=== PATIENT | female | born 1960 | race Caucasian/White ===

== ENCOUNTER 2017-10-12 07:57 | Emergency (ER) | payer OTHER, MEDICAID ==
[~2017-10-12 07:57] MED LIST: AMIO200T PO; ASPI81TA82 PO; CARV25TA PO; CEPH500C3 PO; DIGO0.253 PO; FURO1TAB93 PO; LORTA10 PO; LOSA25TA31 PO; RAMI5CAP36 PO; ROSU10 PO; SPIR25TA PO
[2017-10-12 07:59] VITALS: BP 173/96; PULSE 80; RESP 16; TEMP 97.7; O2SAT 97
[2017-10-12 08:10] VITALS: BP 147/88; PULSE 79; RESP 18; O2SAT 99
--- NOTE | 2017-10-12 09:09 | PD ---
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 She reports hx CHF with pacing device placed by Dr Almaguer. Last night the pacing device beeped. Repeat again this morning. She has been educated that such arms well be an indication for device replacement. She has no complaint otherwise. She reports an appointment scheduled with Dr. Almaguer in 4 days time. She reports no change in her baseline state of health lately. Compliance with all medications reported. No chest pain shortness of breath. PFSH Past Medical History Arthritis: No Asthma: No Autoimmune Disease: No Blood Disorders: No Anxiety: Yes Depression: Yes Heart Rhythm Problems: No Cancer: No Cardiovascular Problems: Yes High Cholesterol: Yes Chemotherapy: No Chest Pain: No Congestive Heart Failure: Yes COPD: No Cerebrovascular Accident: No Coronary Artery Disease: Yes Diabetes: No Diminished Hearing: No Endocrine: No Gastrointestinal Disorders: No GERD: No Glaucoma: No Genitourinary: No Headaches: Yes Hepatitis: No Hiatal Hernia: No Hypertension: Yes Immune Disorder: No Kidney Stones: No Musculoskeletal: No Neurologic: No Psychiatric: No Reproductive: Yes (TUBAL LIGATION) Respiratory: No Integumentary: No Migraines: No Myocardial Infarction: No Radiation Therapy: No Renal Failure: No Seizures: No Sickle Cell Disease: No Sleep Apnea: No Thyroid Disease: Yes Ulcer: No ?: Not : 3 Para: 3 Tubal Ligation: Yes Past Surgical History Abdominal Surgery: No AICD: Yes Appendectomy: No Arteriovenous Shunt: No Cardiac Surgery: No Cholecystectomy: No Ear Surgery: No Endocrine Surgery: No Eye Surgery: No Genitourinary Surgery: No Gynecologic Surgery: No Insulin Pump: No Joint Replacement: No Neurologic Surgery: No Oral Surgery: No Pacemaker: Yes Thoracic Surgery: No Other Surgery: No Social History Alcohol Use: No Tobacco Use: No Substance Use: No Allergies-Medications (Allergen,Severity, Reaction): Coded Allergies: No Known Allergies (Verified Adverse Reaction, Unknown, 10/12/17) Reported Meds & Prescriptions Reported Meds & Active Scripts Active Reported Lortab 10/325 Tab (Hydrocodone-Acetaminophen) 10 Mg/325 Mg Tab 1 Tab PO Q4H PRN Keflex (Cephalexin Monohydrate) 500 Mg Cap 500 Mg PO TID Cozaar (Losartan Potassium) 25 Mg Tab 25 Mg PO DAILY Crestor (Rosuvastatin Calcium) 10 Mg Tab 10 Mg PO DAILY Aspir-81 (Aspirin) 81 Mg Tab 81 Mg PO DAILY Carvedilol 25 Mg Tab 25 Mg PO BID Spironolactone 25 Mg Tab 25 Mg PO DAILY Ramipril 5 Mg Cap 5 Mg PO DAILY Digitek (Digoxin) 0.25 Mg Tab 0.25 Mg PO DAILY Furosemide 40 Mg Tab 40 Mg PO DAILY Amiodarone Hcl (Amiodarone HCl) 200 Mg Tab 100 Mg PO DAILY Review of Systems Except as stated in HPI: all other systems reviewed are Neg General / Constitutional: No: Fever Cardiovascular: No: Chest Pain or Discomfort Respiratory: No: Shortness of Breath Physical Exam Narrative GENERAL: 57-year-old female no acute distress speaking in sentences well- nourished well-developed SKIN: Warm and dry. HEAD: Atraumatic. Normocephalic. EYES: Pupils equal and round. No scleral icterus. No injection or drainage. ENT: No nasal bleeding or discharge. Mucous membranes pink and moist. NECK: Trachea midline. No JVD. CARDIOVASCULAR: Regular rate and rhythm. RESPIRATORY: No accessory muscle use. Clear to auscultation. Breath sounds equal bilaterally. GASTROINTESTINAL: Abdomen soft, non-tender, nondistended. Hepatic and splenic margins not palpable. MUSCULOSKELETAL: Extremities without clubbing, cyanosis, or edema. No obvious deformities. NEUROLOGICAL: Awake and alert. No obvious cranial nerve deficits. Motor grossly within normal limits. Five out of 5 muscle strength in the arms and legs. Normal speech. PSYCHIATRIC: Appropriate mood and affect; insight and judgment normal. Data Data Last Documented VS Vital Signs Date Time Temp Pulse Resp B/P (MAP) Pulse Ox O2 Delivery O2 Flow Rate FiO2 10/12/17 08:10 79 18 147/88 (107) 99 10/12/17 07:59 97.7 VS reviewed [facility] Medical Decision Making Medical Screen Exam Complete: Yes Emergency Medical Condition: Yes Medical Record Reviewed: Yes Differential Diagnosis Pacer device expiration, arrhythmia, malfunction Narrative Course Pacemaker interrogation reveals the device has reached the final 3 months of its functionality based on battery power. The patient has an appointment with Dr. Almaguer in 4 days. Pt educated about daily at 8AM device beeping. Diagnosis Primary Impression: Pacemaker at end of battery life Referrals: Louis Almaguer MD 2 days Disposition: 01 DISCHARGE HOME Condition: Stable Hans Lepe MD Oct 12, 2017 09:09
--- NOTE | 2017-10-13 18:13 | EKG ---
Date Performed: 10/12/2017 Time Performed: 08:21:39 PTAGE: 57 years EKG: ELECTRONIC ATRIAL PACEMAKER ELECTRONIC VENTRICULAR PACEMAKER Compared to previous tracing r melanie is now AV paced ABNORMAL RHYTHM ECG PREVIOUS TRACING : 08/05/2013 16.59 DOCTOR: Dong Martínez Interpretating Date/Time 10/13/2017 18:12:03
== END 2017-10-12 10:40 | disposition home or self-care (01) ==
LOC: NEPC 07:57
DX: T82.191A Other mechanical complication of cardiac pulse generator (battery), initial encounter (principal); I11.0 Hypertensive heart disease with heart failure; I50.9 Heart failure, unspecified; F41.9 Anxiety disorder, unspecified; F32.9 Major depressive disorder, single episode, unspecified; E78.00 Pure hypercholesterolemia, unspecified; I25.10 Atherosclerotic heart disease of native coronary artery without angina pectoris; Z79.82 Long term (current) use of aspirin; Z79.899 Other long term (current) drug therapy
CPT/HCPCS: 93005; 99284

== ENCOUNTER 2017-10-30 06:49 | Day surgery (SDC) | payer OTHER ==
[~2017-10-30] VITALS: Ht 172.7 cm; Wt 121.6 kg
[2017-10-30] MEDS ORDERED: NS 1000 ML IV SCH (07:00)
[2017-10-30] MEDS ORDERED: POVIDONE IODINE 5% (ANTISEPSIS KIT) 4 APPLICATIONS EACH NARE PRN (07:15)
[2017-10-30] MEDS ORDERED: LORazepam 1 MG TAB SL SCH (07:15)
[2017-10-30] MEDS ORDERED: POVIDONE IODINE 5% (ANTISEPSIS KIT) 4 APPLICATIONS EACH NARE SCH (07:15)
[2017-10-30] MEDS ORDERED: ceFAZolin 2 GM PREMIX 50 ML IV SCH (07:15)
[2017-10-30] MEDS ORDERED: VANCOMYCIN 1000 MG/NS 250 ML IV SCH ×2 (07:15)
[2017-10-30] MEDS ORDERED: LACTATED RINGER'S 1000 ML IV PRN (07:15)
[2017-10-30] MEDS ORDERED: SODIUM CHLORID 0.9% 500 ML IV PRN (07:15)
[2017-10-30] MEDS ORDERED: METOPROLOL TARTRATE 25 MG TAB PO PRN (07:15)
[2017-10-30] MEDS ORDERED: CHLORHEXIDINE GLUCONATE 2 % 1 PACK (2 CLOTHS) TOPICAL SCH (07:15)
[2017-10-30] MEDS ORDERED: CHLORHEXIDINE GLUCONATE 2 % 1 PACK (2 CLOTHS) TOPICAL PRN (07:15)
[2017-10-30] MEDS ORDERED: MUPIROCIN 2% OINT 1 APPLIC/GM SYR NASAL SCH (07:15)
[2017-10-30 07:29] VITALS: BP 143/92; PULSE 80; RESP 19; TEMP 98.3; O2SAT 97
[2017-10-30 07:30] LABS: AUTOMATED NEUTROPHIL # 6.1 TH/MM3 (1.8-7.7); BASOPHIL # 0.1 TH/MM3 (0-0.2); BASOPHIL % 0.7 % (0.0-2.0); EOSINOPHIL # 0.2 TH/MM3 (0-0.4); EOSINOPHIL % 2.6 % (0.0-4.0); HEMATOCRIT 40.2 % (35.0-46.0); HEMOGLOBIN 13.1 GM/DL (11.6-15.3); LYMPH % 16.3 % (9.0-44.0); LYMPHOCYTE # 1.3 TH/MM3 (1.0-4.8); MEAN CELL VOLUME 85.9 FL (80.0-100.0); MEAN CORPUSCULAR HEMOGLOBIN 27.9 PG (27.0-34.0); MEAN CORPUSCULAR HGB CONC 32.5 % (32.0-36.0); MEAN PLATELET VOLUME 8.5 FL (7.0-11.0); MONO % 5.2 % (0.0-8.0); MONOCYTE # 0.4 TH/MM3 (0-0.9); NEUT % 75.2 % (16.0-70.0); PLATELET COUNT 235 TH/MM3 (150-450); RED BLOOD COUNT 4.68 MIL/MM3 (4.00-5.30); RED CELL DISTRIBUTION WIDTH 14.7 % (11.6-17.2); WHITE BLOOD COUNT 8.1 TH/MM3 (4.0-11.0)
[2017-10-30 07:36] LABS: PROTHROMBIN TIME - PATIENT 10.5 SEC (9.8-11.6)
[2017-10-30 07:42] LABS: BICARBONATE 31.6 MEQ/L (21.0-32.0); CALCIUM 8.8 MG/DL (8.5-10.1); CREATININE 0.82 MG/DL (0.50-1.00)
[2017-10-30] MEDS ORDERED: LEVO100T5 PO (07:42)
[2017-10-30] MEDS ORDERED: ASPI81CH6 CHEW (07:42)
[2017-10-30] MEDS ORDERED: AMIO200T PO (07:42)
[2017-10-30] MEDS ORDERED: ROSU10 PO (07:42)
[2017-10-30] MEDS ORDERED: DIGO0.25 PO (07:42)
[2017-10-30] MEDS ORDERED: CORE25TA PO (07:42)
[2017-10-30] MEDS ORDERED: RAMI5CAP PO (07:42)
[2017-10-30] MEDS ORDERED: SPIR25TA PO (07:42)
[2017-10-30] MEDS ORDERED: LOSA25TA PO (07:42)
[2017-10-30] MEDS ORDERED: RANI150T PO (07:42)
[2017-10-30] MEDS ORDERED: FURO40TA PO (07:42)
[2017-10-30] MEDS ORDERED: PROPOFOL 200 MG/20 ML AMP ONE (11:04)
[2017-10-30] MEDS ORDERED: MIDAZOLAM HCL 2 MG/2 ML VIAL ONE (11:04)
[2017-10-30] MEDS ORDERED: KETAMINE HCL 500 MG/5 ML VIAL ONE (11:05)
[2017-10-30] MEDS ORDERED: VANCOMYCIN 500 MG VIAL ONE (11:06)
[2017-10-30] MEDS ORDERED: LIDOCAINE HCL 2% 50 ML VIAL ONE (11:06)
[2017-10-30] MEDS ORDERED: ONDANSETRON HCL 4 MG/2 ML VIAL IV PUSH PRN (12:00)
[2017-10-30] MEDS ORDERED: DEXAMETHASONE SOD PHOS 4 MG/ML VIAL IV ONE (12:00)
[2017-10-30] MEDS ORDERED: SODIUM CHLORIDE 0.9% FLUSH 10 ML FLUSH IV FLUSH PRN (12:00)
--- NOTE | 2017-10-30 12:04 | CATHPROC ---
[facility] HIS Report Study Information Study Number Admission Scheduled Start Study Start [id number] Oct 30 2017 6:49AM 10/30/2017 Oct 30 2017 8:17AM [place] [facility] Cardiac Pacer/ICD Admit Source Facility Department Other [facility] - [facility] Physician and Clinical Staff Initial Louis Thibodeaux Antenna Rigger Grant Watkins RCIS(BS) Other Anesthesia, AIR SEALING TECHNICIAN Recorder Vandana Luis,BSRN Recorder Florence Cox,FRANK Scrub Maggie Simmons RT(R) Equipment Time Sports Teacher Description Size Mfg Part Number Used/Scraped DERMABOND, ADHESIVE SKIN [id number] 08:24 CORDIS/PACER * Used GLUE MINI *[id number] 08:24 MEDLINE INDUSTRIES SUTURE, STRIP PLUS 1/2" * Used *[id number] 08:24 MEDLINE PACER [place], LIMB * 2530 *[id number] Used [id number] 08:24 MEDLINE PACER PACK, PACER CUSTOM * Used *[id number] 11:23 Needle Sponge Count 2 2 Used 11:23 Needle Sponge Count 2 22 Used 11:23 Needle Sponge Count 3 33 Used 11:23 Needle Sponge Count 30 1 Used SUTURE, 0 ETHIBOND [CT1] ([id number]), 8pk SUTURE, 2-0 VICRYL [CT1] ([id number]) SUTURE, 2-0 VICRYL [CT1] ([id number]) [id number] 08:24 [place] [facility],WARM AIR CCL * Used *[id number] [facility] PAD, ELECTROSURGICAL 08:24 * [id number] *[id number] Used SURGICAL GROUNDING ORANGE 11:47 VITATRON MEDTRONIC DEFIBRILLATOR, VIVA XT PRODUCTION ASSISTANT-D DDE-DDDR [id number] Used [id number] 08:24 BeepL MEDICAL LV. / * Used *[id number] Equipment Model, Serial, Lot Number and Expiration Data Description Model Number Serial Number Lot Number Expiration Date DEFIBRILLATOR, VIVA XT PRODUCTION ASSISTANT-D [id number] 02-14-2019 History: Current Medications Medication Dosage/Unit Route Frequency Last Date/Time Taken Statins (any) Beta Tera ASA History: Allergies Allergy Reaction No Known Allergies History: Risk Factors Hypertension Dyslipidemia Previous Heart Failure Yes Yes Yes Labs Hgb (g/dl) Hct (%) RBC (MIL/MM3) WBC (l/cumm) Platelets (thousands) 11.60-17.00 35.00-51.00 4.00-5.90 4.00-11.00 150.00-450.00 13.1 40.2 4.6 8.1 235 Glucose (mg/dl) BUN (mg/dl) Creatinine (mg/dl) BUN:Creatinine (1:x) 74.00-106.00 7.00-18.00 0.50-1.30 10.00-20.00 98 12 0.8 15 Na (meq/l) K (meq/l) Cl (meq/l) CO2 (mmol/L) Ca (mg/dl) 136.00-145.00 3.50-5.10 98.00-107.00 21.00-32.00 8.50-10.10 139 3.8 101 31.6 8.8 INR (PTT:PT) 0.90-1.10 1 Medication Medication Total Dose (Bolus/Oral) Medication Total Dosage/Unit 2% XYLOCAINE 50 mL Medications (Bolus/Oral) Medication Time Given Dosage/Unit Administered By Reason 10/30/2017 11:35:58 2% XYLOCAINE 50 mL Louis Almaguer AM 50 mL 2% XYLOCAINE given in lab by Louis Almaguer in Left shoulder via Subcutaneous. Ordered by Louis Almaguer. Medication (Drip) Medication Time Given Dosage/Unit Concentration/Unit Diluent (ml) Solution 10/30/2017 11:09:05 ANCEF 1 g AM 1 g ANCEF given in lab by Anesthesia, AIR SEALING TECHNICIAN via Peripheral IV. Ordered by Louis Almaguer. Reason: As pe r physicians verbal order. 10/30/2017 11:09:55 VANCOMYCIN DRIP 1 g AM 1 g VANCOMYCIN DRIP given in lab by Anesthesia, AIR SEALING TECHNICIAN via Peripheral IV. Ordered by Louis Almaguer. [place] son: As per physicians verbal order. Initial Case Assessment Cardiovascular HR Rhythm NIBP 80 paced 146/79 Edema Present Skin color Skin None Normal Warm Dry Circulatory - Right Pulses Dorsalis Pedis 1 Scale (0,1,2,3,4,d) Circulatory - Left Pulses Dorsalis Pedis 1 Scale (0,1,2,3,4,d) Circulatory - Lower Extremities Color Lower Right Color Lower Left Normal Normal Neurological State Oriented to time-place- Alert Moves all extremities person Respiration - General Respiration Rate SpO2 (%) (B/min) 21 96 Final Case Assessment Cardiovascular HR NIBP Chest Pain 80 130/58 0 Edema Present Skin color Skin None Normal Warm Dry Circulatory - Right Pulses Dorsalis Pedis 1 Scale (0,1,2,3,4,d) Circulatory - Left Pulses Dorsalis Pedis 1 Scale (0,1,2,3,4,d) Circulatory - Lower Extremities Color Lower Right Color Lower Left Normal Normal Neurological State Oriented to time-place- Drowsy Moves all extremities person Respiration - General Respiration Rate SpO2 (%) (B/min) 22 97 Chronological Log Time Study Chronological Log 10:49:15 Patient arrived via Bed. 10:49:22 Patient Name, D.O.B, / Armband Verified By R.N. 10:51:28 Consent signed by the physician and the patient and verified by the Building [facility] staff. 10:51:31 Pre-op and post- op instructions given; patient acknowledges understanding of instructions. 10:51:35 Verbal Stimulation=2 Physical Stimulation=2 Airway=2 Respiration=2 TOTAL=8. (0=absent, 1=li mited, 2=present) 10:51:53 Presedation assessment performed by Building [facility] RN. 10:51:56 Patient has been NPO for More than 6Hrs. 10:52:02 History and physical is on the chart 10:52:26 Skin Breakdown- none per pt 10:52:37 Patient Warmer Placed on the Table. 10:53:04 Shad Prominences Protected 10:53:14 A # 20 IV was noted in the Antecubital (left). Grade = 0 0.9% NaCl at kvo. 10:53:25 A # 20 IV was noted in the Antecubital (right). Grade = 0 0.9% NaCl at kvo. 10:54:13 Disposable Defibrillator Pads Placed On Patient. 10:54:20 Bovie ground pad applied to: right thigh. Assessment: Initial Case, HR=80 BPM, Rhythm=paced, WVIW=757/79 mmhg, Edema=None, Color=Normal, Skin = Warm, Dry Right Pulses: Jim Ped=1 Left Pulses: Jim Ped=1 10:55:17 Lower Right Extremities: Color=Normal Lower Left Extremities: Color=Normal Neurological: State=Alert, Ox3, MCCALL Respiration: Resp=21 B/min, SpO2=96 % 10:58:25 Anesthesia at bedside. Assumes care of patient. 11:06:25 Table restraints applied according to hospital policy 11:07:18 Reference ECG taken 1 g ANCEF given in lab by Anesthesia, AIR SEALING TECHNICIAN via Peripheral IV. Ordered by Louis Almaguer. Reason: As per physicians 11:09:05 verbal order. 1 g VANCOMYCIN DRIP given in lab by Anesthesia, AIR SEALING TECHNICIAN via Peripheral IV. Ordered by Nicole Almaguer Reason: As per 11:09:55 physicians verbal order. 11:10:24 Medtronic rep Mac present in room for case. 11:11:24 2% CHLORHEXIDINE GLUCONATE WASH AND NASAL SWIPE DONE PRIOR TO PROCEDURE. First Sponge And Instrument Count Done by Maggie Simmons, RT(R). 11:14:52 Hypo's: 2, Sponges: 30, Bovie/scratch: 3 Sutures: 2, Blades: 1, Instruments: 26, Syveck Patches: 0 verified by MR 11:19:29 Left Upper Chest Prepped Times Two. 11:24:39 MD paged 11:25:44 MD responded 11:30:07 MD arrived. Time Out. Correct patient, procedure, procedure equipment, site and side verified with physicia n present. Time 11:34:21 concurred by MD, individual staff and AIR SEALING TECHNICIAN. Time Out #2 - Consents verified, patient in correct position, all results are labled and displa yed, safety precautions 11:34:41 taken, antibiotics administered. Time out concurred by MD, individual staff and AIR SEALING TECHNICIAN in procedu re 11:34:49 Case Start 11:35:58 50 mL 2% XYLOCAINE given in lab by Louis Almaguer in Left shoulder via Subcutaneous. Ordered by Louis Almaguer. 11:36:27 Surgical Incision Made. 11:38:35 Dr. Sanchez in to check on case 11:39:23 Dr. Sanchez out. 11:39:50 A pocket was created at the L Upper Chest. 11:42:47 A device was explanted. 11:44:15 Pocket flushed with antibiotic solution 11:48:15 A DEFIBRILLATOR, VIVA XT PRODUCTION ASSISTANT-D DDE-DDDR was connected and placed in the pocket. Second Sponge And Instrument Count Done by Maggie Simmons, RT(R). 11:49:29 Hypo's: 2, Sponges: 30, Bovie/scratch: 3 Sutures: 2, Blades: 1, Instruments: 26, Syveck Patches: 0 verified by KF 11:55:35 The pocket was closed. 11:56:34 DOCU called. Spoke to Myriam 11:56:35 Bedside Report will be given. 11:56:51 Implant Procedure was performed. 11:56:58 A Bivent ICD Implant . (Dual) Gen change Assessment: Final Case, HR=80 BPM, KIXS=810/58 mmhg, Chest Pain=0, Edema=None, Color=Normal, S kin = Warm, Dry Right Pulses: Jim Ped=1 Left Pulses: Jim Ped=1 12:00:15 Lower Right Extremities: Color=Normal Lower Left Extremities: Color=Normal Neurological: State=Drowsy, Ox3, MCCALL Respiration: Resp=22 B/min, SpO2=97 % 12:00:39 Steri-strips and a sterile dressing applied to site. 12:00:47 Case End 12:02:43 No case complications noted. 12:02:44 Cine recording checked. 12:03:07 Implantable Device card placed in patient's chart. 12:03:17 Defibrillator and ground pads removed. Skin intact. 12:10:24 Patient moved to stretcher End Study - Contrast Media Used In Study Contrast Total Opened (mL) Total Used (mL) Total Wasted (mL) Unspecified 0 0 0 End Study - Maximum Contrast Load Max Contrast Load (mL) 759.9 End Study - Radiation Exposure Fluoro Time (minutes) 0.1 End Study - Patient Disposition Complications Transferred To Interventional Outcome No Telemetry Bed successful
[2017-10-30] MEDS ORDERED: HYDR-3366 PO (12:05)
[2017-10-30] MEDS ORDERED: CEPH-460 PO (12:05)
[2017-10-30] MEDS ORDERED: SODIUM CHLORIDE 0.9% FLUSH 10 ML FLUSH IV FLUSH SCH (21:00)
--- NOTE | 2017-10-30 22:18 | EKG ---
Date Performed: 10/30/2017 Time Performed: 07:39:56 PTAGE: 57 years EKG: A-V sequential pacemaker. Pacemaker rhythm - no further analysis Abnormal ECG PREVIOUS TRACING : 10/12/2017 08.21 Compared to prior tracing no significant change DOCTOR: João Vaughan Interpretating Date/Time 10/30/2017 22:16:29
--- NOTE | 2017-11-07 12:39 | PD.CARD ---
Dual Defib Replacement PROCEDURE DATE: Oct 30, 2017 NYHA Classification: Class III (Moderate) Prevention: Primary Dual Defib Replacement PROCEDURE 1. Biventricular pacer defibrillator removal. 2. Biventricular pacer defibrillator replacement. 3. Pocket revision. Ms. Ray is a 57 -year-old female with congestive heart failure, non ischemic cardiomyopathy, Ejection 26%, on optimal medical management, Biventricular pacer defibrillator currently end of life. Admitted for generator replacement and device testing. The risks, the nature and the benefit of the procedure clearly stated to her. The risks include pneumothorax, cardiac perforation, stroke and even . She understood and agreed to proceed. PROCEDURE After written informed consent was obtained, the patient was brought to the EP lab where she was prepped and draped in the usual sterile fashion. Conscious sedation was initiated and maintained throughout the procedure by anesthesiologist. Once sedation was verified, the left infraclavicular area was anesthetized with 2% Xylocaine. Using #11 blade scalpel, a 3-cm incision was made over the existing generator. The incision was then taken down deep fascial layers generator exposed. Once exposed, it was removed from the pocket. Scar tissue was removed around the lead pocket revision was performed. Pocket was expanded. Then, the lead was disconnected from the generator and tested. After adequate pacing and sensing thresholds were obtained. The leads were connected to the new generator and placed into the pocket. I decided not to perform with NIPS. I then proceeded with wound closure. The deep fascial layer was approximated using 2-0 Vicryl suture in a continuous fashion. The subcutaneous layer was approximated using 2-0 Vicryl suture in a continuous fashion. The subcuticular layer was approximated using 2-0 Vicryl suture in a continuous fashion. Dermabond adhesive was applied to the wound followed by sterile pressure dressing. There was no complication. The patient tolerated procedure. Blood loss minimal. 1. Explanted hardware: The explanted defibrillator is a Medtronic model number [id number], serial number [id number]. That was implanted in Aug 2013. For information about existing lead please refer to previous dictation. 2. Implanted hardware: The implanted defibrillator generator is a Medtronic, model number [id number], serial number [id number]. 3. Threshold: The right atrial pacing threshold in the bipolar mode was 2.75 volt at 1.0 milliseconds. Lead impedance 495 ohms and P-wave at 0.6 mV. The right ventricular pacing threshold in the bipolar mode was 1.0 volts at 0.5 milliseconds. Lead impedance 380 ohms and R-wave at 10.5 mV. The left ventricle pacing threshold in a bipolar mode was 1.0V @ 0.5 ms. Lead impedance 325ohms. 4. Settings: The device is set in a DDD 60, upper limit 120 beats per minute. Defibrillatory portioned for two zones, one zone for ventricular tachycardia between 170 to 250 beats per minute. Initial therapy consists of one burst of ATP, one ramp, 81%, 10 pulses, 10 ms decremental followed by 20 then 25 and all subsequent shocks at 35 defibrillatory shock. Second zone for ventricular fibrillation above 250 beats per minute, first therapy at 25 and all subsequent shocks at 35 joule defibrillatory shock. CONCLUSIONS Successful biventricular pacer defibrillator removal, biventricular pacer defibrillator replacement. COMMENT/RECOMMENDATIONS The patient will be transferred to telemetry unit. She will be observed, when stable can be discharged home Louis Almaguer MD Nov 07, 2017 12:39
== END 2017-10-30 13:37 | disposition home or self-care (01) ==
LOC: HDIC 06:49 → HDOC 06:49
PROVIDERS: ATTEND Internal Medicine Interventional Cardiology
DX: Z45.02 Encounter for adjustment and management of automatic implantable cardiac defibrillator (principal); I11.0 Hypertensive heart disease with heart failure; I50.9 Heart failure, unspecified; I42.9 Cardiomyopathy, unspecified; I47.2 Ventricular tachycardia; I25.10 Atherosclerotic heart disease of native coronary artery without angina pectoris; E66.01 Morbid (severe) obesity due to excess calories; Z68.41 Body mass index [BMI] 40.0-44.9, adult; Z79.82 Long term (current) use of aspirin; R06.02 Shortness of breath
CPT/HCPCS: 00530; 33264; 80048; 85025; 85610; 85730; 86850; 86900; 86901; 93005; C1882; J2250; J3010; J3370; 33229; J1100